=== PATIENT | male | born 1965 | race Two or more races ===

== ENCOUNTER 2016-08-05 11:19 | Outpatient (CLI) | payer MEDICARE | END 2016-08-05 23:59 | disposition home or self-care (01) | LOC: WOU 11:19 | PROVIDERS: ATTEND Podiatrist Foot & Ankle Surgery | DX: D57.1 Sickle-cell disease without crisis (principal); L97.312 Non-pressure chronic ulcer of right ankle with fat layer exposed; L97.322 Non-pressure chronic ulcer of left ankle with fat layer exposed; L03.115 Cellulitis of right lower limb; L03.116 Cellulitis of left lower limb; R60.0 Localized edema; I82.511 Chronic embolism and thrombosis of right femoral vein | CPT/HCPCS: 11042; 11045; A6207; A6402 ==

== ENCOUNTER 2016-08-12 11:16 | Outpatient (CLI) | payer MEDICARE | END 2016-08-12 23:59 | disposition home or self-care (01) | LOC: WOU 11:16 | PROVIDERS: ATTEND Podiatrist Foot & Ankle Surgery | DX: D57.1 Sickle-cell disease without crisis (principal); L97.312 Non-pressure chronic ulcer of right ankle with fat layer exposed; L97.322 Non-pressure chronic ulcer of left ankle with fat layer exposed; I82.511 Chronic embolism and thrombosis of right femoral vein; Z90.81 Acquired absence of spleen; Z90.49 Acquired absence of other specified parts of digestive tract; Z82.3 Family history of stroke; Z80.9 Family history of malignant neoplasm, unspecified; Z82.49 Family history of ischemic heart disease and other diseases of the circulatory system; Z79.891 Long term (current) use of opiate analgesic | CPT/HCPCS: 11042; 11045; A6207; A6402 ==

== ENCOUNTER 2016-08-19 10:55 | Outpatient (CLI) | payer MEDICARE | END 2016-08-19 23:59 | disposition home or self-care (01) | LOC: WOU 10:55 | PROVIDERS: ATTEND Podiatrist Foot & Ankle Surgery | DX: D57.1 Sickle-cell disease without crisis (principal); L97.221 Non-pressure chronic ulcer of left calf limited to breakdown of skin; L97.211 Non-pressure chronic ulcer of right calf limited to breakdown of skin; M21.172 Varus deformity, not elsewhere classified, left ankle; M21.171 Varus deformity, not elsewhere classified, right ankle; Z74.09 Other reduced mobility; I82.511 Chronic embolism and thrombosis of right femoral vein; L08.89 Other specified local infections of the skin and subcutaneous tissue; B95.8 Unspecified staphylococcus as the cause of diseases classified elsewhere | CPT/HCPCS: 11042; 11045; A6207; A6402 ×2 ==

== ENCOUNTER 2016-08-24 11:15 | Outpatient (CLI) | payer MEDICARE | END 2016-08-24 23:59 | disposition home or self-care (01) | LOC: WOU 11:15 | PROVIDERS: ATTEND Podiatrist Foot & Ankle Surgery | DX: D57.1 Sickle-cell disease without crisis (principal); L97.221 Non-pressure chronic ulcer of left calf limited to breakdown of skin; L97.211 Non-pressure chronic ulcer of right calf limited to breakdown of skin; M21.172 Varus deformity, not elsewhere classified, left ankle; M21.171 Varus deformity, not elsewhere classified, right ankle; Z74.09 Other reduced mobility; I82.511 Chronic embolism and thrombosis of right femoral vein; G89.29 Other chronic pain | CPT/HCPCS: 11042; 11045; A6207; A6402 ==

== ENCOUNTER 2016-09-02 10:50 | Outpatient (CLI) | payer MEDICARE | END 2016-09-02 23:59 | disposition home or self-care (01) | LOC: WOU 10:50 | PROVIDERS: ATTEND Podiatrist Foot & Ankle Surgery | DX: D57.1 Sickle-cell disease without crisis (principal); L97.312 Non-pressure chronic ulcer of right ankle with fat layer exposed; L97.322 Non-pressure chronic ulcer of left ankle with fat layer exposed; I87.2 Venous insufficiency (chronic) (peripheral); G89.29 Other chronic pain; Z90.81 Acquired absence of spleen; I82.511 Chronic embolism and thrombosis of right femoral vein; M21.172 Varus deformity, not elsewhere classified, left ankle; M21.171 Varus deformity, not elsewhere classified, right ankle; Z79.891 Long term (current) use of opiate analgesic; L03.115 Cellulitis of right lower limb; L03.116 Cellulitis of left lower limb; B95.61 Methicillin susceptible Staphylococcus aureus infection as the cause of diseases classified elsewhere | CPT/HCPCS: 11042; 11045; A6207; A6402 ==

== ENCOUNTER 2016-09-16 11:02 | Outpatient (CLI) | payer MEDICARE | END 2016-09-16 23:59 | disposition home or self-care (01) | LOC: WOU 11:02 | PROVIDERS: ATTEND Podiatrist Foot & Ankle Surgery | DX: D57.1 Sickle-cell disease without crisis (principal); L97.321 Non-pressure chronic ulcer of left ankle limited to breakdown of skin; L97.311 Non-pressure chronic ulcer of right ankle limited to breakdown of skin; M21.172 Varus deformity, not elsewhere classified, left ankle; M21.171 Varus deformity, not elsewhere classified, right ankle; G89.29 Other chronic pain; I82.511 Chronic embolism and thrombosis of right femoral vein; B95.61 Methicillin susceptible Staphylococcus aureus infection as the cause of diseases classified elsewhere | CPT/HCPCS: 11042; A6207; A6402 ==

== ENCOUNTER 2016-09-23 11:15 | Outpatient (CLI) | payer MEDICARE | END 2016-09-23 23:59 | disposition home or self-care (01) | LOC: WOU 11:15 | PROVIDERS: ATTEND Podiatrist Foot & Ankle Surgery | DX: D57.1 Sickle-cell disease without crisis (principal); L97.312 Non-pressure chronic ulcer of right ankle with fat layer exposed; L97.322 Non-pressure chronic ulcer of left ankle with fat layer exposed; M21.542 Acquired clubfoot, left foot; M21.541 Acquired clubfoot, right foot; I82.511 Chronic embolism and thrombosis of right femoral vein; L03.116 Cellulitis of left lower limb; L03.115 Cellulitis of right lower limb; B95.61 Methicillin susceptible Staphylococcus aureus infection as the cause of diseases classified elsewhere | CPT/HCPCS: 11042; 29582; A6207; A6402 ==

== ENCOUNTER 2016-09-30 10:45 | Outpatient (CLI) | payer MEDICARE | END 2016-09-30 23:59 | disposition home or self-care (01) | LOC: WOU 10:45 | PROVIDERS: ATTEND Podiatrist Foot & Ankle Surgery | DX: D57.1 Sickle-cell disease without crisis (principal); I96 Gangrene, not elsewhere classified; L97.312 Non-pressure chronic ulcer of right ankle with fat layer exposed; M21.542 Acquired clubfoot, left foot; M21.541 Acquired clubfoot, right foot; I82.511 Chronic embolism and thrombosis of right femoral vein; G89.29 Other chronic pain | CPT/HCPCS: 11042; 29582; A6207; A6402 ==

== ENCOUNTER 2016-10-07 11:03 | Outpatient (CLI) | payer MEDICARE | END 2016-10-07 23:59 | disposition home or self-care (01) | LOC: WOU 11:03 | PROVIDERS: ATTEND Podiatrist Foot & Ankle Surgery | DX: D57.1 Sickle-cell disease without crisis (principal); I82.511 Chronic embolism and thrombosis of right femoral vein; G89.29 Other chronic pain; M21.542 Acquired clubfoot, left foot; M21.541 Acquired clubfoot, right foot; Z87.891 Personal history of nicotine dependence; L97.312 Non-pressure chronic ulcer of right ankle with fat layer exposed | CPT/HCPCS: 11042; 29582; A6207 ×2; A6402 ==

== ENCOUNTER 2016-10-14 10:59 | Outpatient (CLI) | payer MEDICARE | END 2016-10-14 23:59 | disposition home or self-care (01) | LOC: WOU 10:59 | PROVIDERS: ATTEND Podiatrist Foot & Ankle Surgery | DX: D57.80 Other sickle-cell disorders without crisis (principal); L97.311 Non-pressure chronic ulcer of right ankle limited to breakdown of skin; I82.511 Chronic embolism and thrombosis of right femoral vein; G89.29 Other chronic pain; M21.172 Varus deformity, not elsewhere classified, left ankle; M21.171 Varus deformity, not elsewhere classified, right ankle; R60.0 Localized edema | CPT/HCPCS: 11042; 29582; A6207; A6402 ==

== ENCOUNTER 2016-10-26 09:48 | Outpatient (CLI) | payer MEDICARE | END 2016-10-26 23:59 | disposition home or self-care (01) | LOC: WOU 09:48 | PROVIDERS: ATTEND Podiatrist Foot & Ankle Surgery | DX: D57.80 Other sickle-cell disorders without crisis (principal); L97.311 Non-pressure chronic ulcer of right ankle limited to breakdown of skin; G89.29 Other chronic pain; M21.172 Varus deformity, not elsewhere classified, left ankle; M21.171 Varus deformity, not elsewhere classified, right ankle; R60.0 Localized edema | CPT/HCPCS: 11042; A6402; A6207 ==

== ENCOUNTER 2016-10-28 10:28 | Outpatient (CLI) | payer MEDICARE | END 2016-10-28 23:59 | disposition home or self-care (01) | LOC: WOU 10:28 | PROVIDERS: ATTEND Podiatrist Foot & Ankle Surgery | DX: D57.80 Other sickle-cell disorders without crisis (principal); L97.311 Non-pressure chronic ulcer of right ankle limited to breakdown of skin; G89.29 Other chronic pain; M21.172 Varus deformity, not elsewhere classified, left ankle; M21.171 Varus deformity, not elsewhere classified, right ankle; R60.0 Localized edema | CPT/HCPCS: 11042; A6207; A6402 ==

== ENCOUNTER 2016-11-11 10:13 | Outpatient (CLI) | payer MEDICARE | END 2016-11-11 23:59 | disposition home or self-care (01) | LOC: WOU 10:13 | PROVIDERS: ATTEND Podiatrist Foot & Ankle Surgery | DX: L97.311 Non-pressure chronic ulcer of right ankle limited to breakdown of skin (principal); D57.80 Other sickle-cell disorders without crisis; G89.29 Other chronic pain; M21.172 Varus deformity, not elsewhere classified, left ankle; M21.171 Varus deformity, not elsewhere classified, right ankle; R60.0 Localized edema; R26.9 Unspecified abnormalities of gait and mobility; I87.2 Venous insufficiency (chronic) (peripheral); I82.512 Chronic embolism and thrombosis of left femoral vein; Z86.14 Personal history of Methicillin resistant Staphylococcus aureus infection | CPT/HCPCS: 11042; A6207; A6402 ==

== ENCOUNTER 2016-11-25 10:08 | Outpatient (CLI) | payer MEDICARE | END 2016-11-25 23:59 | disposition home or self-care (01) | LOC: WOU 10:08 | PROVIDERS: ATTEND Podiatrist Foot & Ankle Surgery | DX: D57.1 Sickle-cell disease without crisis (principal); L97.312 Non-pressure chronic ulcer of right ankle with fat layer exposed; B35.1 Tinea unguium; M21.172 Varus deformity, not elsewhere classified, left ankle; M21.171 Varus deformity, not elsewhere classified, right ankle; G89.29 Other chronic pain; Z86.14 Personal history of Methicillin resistant Staphylococcus aureus infection; I82.511 Chronic embolism and thrombosis of right femoral vein; Z90.81 Acquired absence of spleen | CPT/HCPCS: 11042; A6207; A6402 ==

== ENCOUNTER 2016-12-02 09:50 | Outpatient (CLI) | payer MEDICARE | END 2016-12-02 23:59 | disposition home or self-care (01) | LOC: WOU 09:50 | PROVIDERS: ATTEND Podiatrist Foot & Ankle Surgery | DX: D57.1 Sickle-cell disease without crisis (principal); L97.312 Non-pressure chronic ulcer of right ankle with fat layer exposed; I82.511 Chronic embolism and thrombosis of right femoral vein; M21.542 Acquired clubfoot, left foot; M21.541 Acquired clubfoot, right foot; Z82.3 Family history of stroke; Z82.49 Family history of ischemic heart disease and other diseases of the circulatory system | CPT/HCPCS: A6207; A6402 ==

== ENCOUNTER 2016-12-09 10:05 | Outpatient (CLI) | payer MEDICARE | END 2016-12-09 23:59 | disposition home or self-care (01) | LOC: WOU 10:05 | PROVIDERS: ATTEND Podiatrist Foot & Ankle Surgery | DX: D57.1 Sickle-cell disease without crisis (principal); L97.319 Non-pressure chronic ulcer of right ankle with unspecified severity; L84 Corns and callosities; M21.172 Varus deformity, not elsewhere classified, left ankle; M21.171 Varus deformity, not elsewhere classified, right ankle; I82.511 Chronic embolism and thrombosis of right femoral vein; R26.9 Unspecified abnormalities of gait and mobility; Z90.49 Acquired absence of other specified parts of digestive tract; Z90.81 Acquired absence of spleen | CPT/HCPCS: 29582; A6207; A6402 ==

== ENCOUNTER 2016-12-14 10:11 | Outpatient (CLI) | payer MEDICARE | END 2016-12-14 23:59 | disposition home or self-care (01) | LOC: WOU 10:11 | PROVIDERS: ATTEND Podiatrist Foot & Ankle Surgery | DX: D57.1 Sickle-cell disease without crisis (principal); L97.319 Non-pressure chronic ulcer of right ankle with unspecified severity; L84 Corns and callosities; M21.172 Varus deformity, not elsewhere classified, left ankle; M21.171 Varus deformity, not elsewhere classified, right ankle; I82.511 Chronic embolism and thrombosis of right femoral vein; R26.9 Unspecified abnormalities of gait and mobility; M24.673 Ankylosis, unspecified ankle | CPT/HCPCS: 29582; A6207; A6402 ==

== ENCOUNTER 2016-12-23 08:00 | Outpatient (CLI) | payer MEDICARE | END 2016-12-23 23:59 | disposition home or self-care (01) | LOC: WOU 08:00 | PROVIDERS: ATTEND Podiatrist Foot & Ankle Surgery | DX: D57.1 Sickle-cell disease without crisis (principal); L97.311 Non-pressure chronic ulcer of right ankle limited to breakdown of skin; I82.511 Chronic embolism and thrombosis of right femoral vein; G89.29 Other chronic pain; M21.172 Varus deformity, not elsewhere classified, left ankle; M21.171 Varus deformity, not elsewhere classified, right ankle; M24.672 Ankylosis, left ankle; M24.671 Ankylosis, right ankle | CPT/HCPCS: 15110; A6207; A6402 ==

== ENCOUNTER 2016-12-30 10:00 | Outpatient (CLI) | payer MEDICARE | END 2016-12-30 23:59 | disposition home or self-care (01) | LOC: WOU 10:00 | PROVIDERS: ATTEND Podiatrist Foot & Ankle Surgery | DX: D57.1 Sickle-cell disease without crisis (principal); L97.312 Non-pressure chronic ulcer of right ankle with fat layer exposed; M21.172 Varus deformity, not elsewhere classified, left ankle; M21.171 Varus deformity, not elsewhere classified, right ankle; R60.0 Localized edema | CPT/HCPCS: 29582; A6207; A6402 ==

== ENCOUNTER 2017-01-11 10:15 | Outpatient (CLI) | payer MEDICARE | END 2017-01-11 23:59 | disposition home or self-care (01) | LOC: WOU 10:15 | PROVIDERS: ATTEND Podiatrist Foot & Ankle Surgery | DX: D57.1 Sickle-cell disease without crisis (principal); L97.311 Non-pressure chronic ulcer of right ankle limited to breakdown of skin; R60.0 Localized edema; M21.172 Varus deformity, not elsewhere classified, left ankle; M21.171 Varus deformity, not elsewhere classified, right ankle; L90.9 Atrophic disorder of skin, unspecified; I82.511 Chronic embolism and thrombosis of right femoral vein | CPT/HCPCS: 17250; A6207; A6402 ==

== ENCOUNTER 2017-01-25 08:44 | Outpatient (CLI) | payer MEDICARE | END 2017-01-25 23:59 | disposition home or self-care (01) | LOC: WOU 08:44 | PROVIDERS: ATTEND Podiatrist Foot & Ankle Surgery | DX: D57.1 Sickle-cell disease without crisis (principal); L97.312 Non-pressure chronic ulcer of right ankle with fat layer exposed; M21.171 Varus deformity, not elsewhere classified, right ankle; I82.511 Chronic embolism and thrombosis of right femoral vein | CPT/HCPCS: 11042; A6207; A6402 ==

== ENCOUNTER 2017-02-10 09:10 | Outpatient (CLI) | payer MEDICARE | END 2017-02-10 23:59 | disposition home or self-care (01) | LOC: WOU 09:10 | PROVIDERS: ATTEND Podiatrist Foot & Ankle Surgery | DX: D57.1 Sickle-cell disease without crisis (principal); L97.322 Non-pressure chronic ulcer of left ankle with fat layer exposed; L97.312 Non-pressure chronic ulcer of right ankle with fat layer exposed; L84 Corns and callosities; M21.172 Varus deformity, not elsewhere classified, left ankle; M21.171 Varus deformity, not elsewhere classified, right ankle; I82.511 Chronic embolism and thrombosis of right femoral vein; R26.9 Unspecified abnormalities of gait and mobility; Z79.891 Long term (current) use of opiate analgesic; Z82.3 Family history of stroke; Z80.9 Family history of malignant neoplasm, unspecified; Z82.49 Family history of ischemic heart disease and other diseases of the circulatory system; Z90.81 Acquired absence of spleen; Z90.49 Acquired absence of other specified parts of digestive tract | CPT/HCPCS: 11042; A6197; A6207; A6402 ×2 ==

== ENCOUNTER 2017-02-24 09:20 | Outpatient (CLI) | payer MEDICARE, MEDICAID | END 2017-02-24 23:59 | disposition home or self-care (01) | LOC: WOU 09:20 | PROVIDERS: ATTEND Podiatrist Foot & Ankle Surgery | DX: D57.1 Sickle-cell disease without crisis (principal); L97.311 Non-pressure chronic ulcer of right ankle limited to breakdown of skin; S91.301D Unspecified open wound, right foot, subsequent encounter; X58.XXXD Exposure to other specified factors, subsequent encounter; S91.302D Unspecified open wound, left foot, subsequent encounter; R60.0 Localized edema; M21.172 Varus deformity, not elsewhere classified, left ankle; M21.171 Varus deformity, not elsewhere classified, right ankle; I82.511 Chronic embolism and thrombosis of right femoral vein; R26.9 Unspecified abnormalities of gait and mobility | CPT/HCPCS: 11042; A6207; A6402 ==

== ENCOUNTER 2017-03-08 09:15 | Outpatient (CLI) | payer MEDICARE, MEDICAID | END 2017-03-08 23:59 | disposition home or self-care (01) | LOC: WOU 09:15 | PROVIDERS: ATTEND Podiatrist Foot & Ankle Surgery | DX: D57.1 Sickle-cell disease without crisis (principal); L97.311 Non-pressure chronic ulcer of right ankle limited to breakdown of skin; M21.172 Varus deformity, not elsewhere classified, left ankle; M21.171 Varus deformity, not elsewhere classified, right ankle; I82.511 Chronic embolism and thrombosis of right femoral vein; R26.9 Unspecified abnormalities of gait and mobility; R60.0 Localized edema | CPT/HCPCS: 15110; A6207; A6402 ==

== ENCOUNTER 2017-03-17 09:15 | Outpatient (CLI) | payer MEDICARE, MEDICAID | END 2017-03-17 23:59 | disposition home or self-care (01) | LOC: WOU 09:15 | PROVIDERS: ATTEND Podiatrist Foot & Ankle Surgery | DX: D57.1 Sickle-cell disease without crisis (principal); L97.311 Non-pressure chronic ulcer of right ankle limited to breakdown of skin; M21.172 Varus deformity, not elsewhere classified, left ankle; M21.171 Varus deformity, not elsewhere classified, right ankle; I82.511 Chronic embolism and thrombosis of right femoral vein; R26.9 Unspecified abnormalities of gait and mobility; R60.0 Localized edema; L03.115 Cellulitis of right lower limb; L03.116 Cellulitis of left lower limb | CPT/HCPCS: 29582; A6207; A6402 ==

== ENCOUNTER 2017-03-24 09:21 | Outpatient (CLI) | payer MEDICARE, MEDICAID | END 2017-03-24 23:59 | disposition home or self-care (01) | LOC: WOU 09:21 | PROVIDERS: ATTEND Podiatrist Foot & Ankle Surgery | DX: D57.1 Sickle-cell disease without crisis (principal); L97.312 Non-pressure chronic ulcer of right ankle with fat layer exposed; M21.172 Varus deformity, not elsewhere classified, left ankle; M21.171 Varus deformity, not elsewhere classified, right ankle; I82.511 Chronic embolism and thrombosis of right femoral vein; R26.9 Unspecified abnormalities of gait and mobility; R60.0 Localized edema; L84 Corns and callosities | CPT/HCPCS: 29582; A6207; A6402 ==

== ENCOUNTER 2017-03-31 09:15 | Outpatient (CLI) | payer MEDICARE, MEDICAID | END 2017-03-31 23:59 | disposition home or self-care (01) | LOC: WOU 09:15 | PROVIDERS: ATTEND Podiatrist Foot & Ankle Surgery | DX: D57.1 Sickle-cell disease without crisis (principal); L97.311 Non-pressure chronic ulcer of right ankle limited to breakdown of skin; M21.172 Varus deformity, not elsewhere classified, left ankle; M21.171 Varus deformity, not elsewhere classified, right ankle; I82.511 Chronic embolism and thrombosis of right femoral vein; R26.9 Unspecified abnormalities of gait and mobility; R60.0 Localized edema | CPT/HCPCS: 11042; A6207; A6402 ==

== ENCOUNTER 2017-04-12 09:53 | Outpatient (CLI) | payer MEDICARE, MEDICAID | END 2017-04-12 23:59 | disposition home or self-care (01) | DX: D57.1 Sickle-cell disease without crisis (principal); L97.311 Non-pressure chronic ulcer of right ankle limited to breakdown of skin; M21.172 Varus deformity, not elsewhere classified, left ankle; M21.171 Varus deformity, not elsewhere classified, right ankle; I82.511 Chronic embolism and thrombosis of right femoral vein; R26.9 Unspecified abnormalities of gait and mobility; R60.0 Localized edema | CPT/HCPCS: 11042; A6207; A6402 ==

== ENCOUNTER 2017-04-21 09:03 | Outpatient (CLI) | payer MEDICARE, MEDICAID | END 2017-04-21 23:59 | disposition home or self-care (01) | LOC: WOU 09:03 | PROVIDERS: ATTEND Podiatrist Foot & Ankle Surgery | DX: D57.1 Sickle-cell disease without crisis (principal); L97.311 Non-pressure chronic ulcer of right ankle limited to breakdown of skin; M21.172 Varus deformity, not elsewhere classified, left ankle; M21.171 Varus deformity, not elsewhere classified, right ankle; M20.40 Other hammer toe(s) (acquired), unspecified foot; M24.672 Ankylosis, left ankle; M24.671 Ankylosis, right ankle | CPT/HCPCS: 11042; A6207; A6402 ==

== ENCOUNTER 2017-05-02 10:29 | Outpatient (CLI) | payer MEDICARE, MEDICAID | END 2017-05-02 23:59 | disposition home or self-care (01) | LOC: WOU 10:29 | PROVIDERS: ATTEND Podiatrist Foot & Ankle Surgery | DX: D57.1 Sickle-cell disease without crisis (principal); L97.311 Non-pressure chronic ulcer of right ankle limited to breakdown of skin; M21.172 Varus deformity, not elsewhere classified, left ankle; M21.171 Varus deformity, not elsewhere classified, right ankle; M20.40 Other hammer toe(s) (acquired), unspecified foot; M24.672 Ankylosis, left ankle; M24.671 Ankylosis, right ankle; L84 Corns and callosities; G89.29 Other chronic pain | CPT/HCPCS: 11042; A6207; A6402 ==

== ENCOUNTER 2017-05-10 09:32 | Outpatient (CLI) | payer MEDICARE, MEDICAID | END 2017-05-10 23:59 | disposition home or self-care (01) | LOC: WOU 09:32 | PROVIDERS: ATTEND Podiatrist Foot & Ankle Surgery | DX: D57.1 Sickle-cell disease without crisis (principal); L97.311 Non-pressure chronic ulcer of right ankle limited to breakdown of skin; M21.172 Varus deformity, not elsewhere classified, left ankle; M21.171 Varus deformity, not elsewhere classified, right ankle; M20.40 Other hammer toe(s) (acquired), unspecified foot; M24.672 Ankylosis, left ankle; M24.671 Ankylosis, right ankle; G89.29 Other chronic pain | CPT/HCPCS: 11042; A6207; A6402 ==

== ENCOUNTER 2017-05-17 09:15 | Outpatient (CLI) | payer MEDICARE, MEDICAID | END 2017-05-17 23:59 | disposition home or self-care (01) | LOC: WOU 09:15 | PROVIDERS: ATTEND Podiatrist Foot & Ankle Surgery | DX: D57.1 Sickle-cell disease without crisis (principal); L97.311 Non-pressure chronic ulcer of right ankle limited to breakdown of skin; M21.172 Varus deformity, not elsewhere classified, left ankle; M21.171 Varus deformity, not elsewhere classified, right ankle; G89.29 Other chronic pain; Z74.09 Other reduced mobility | CPT/HCPCS: 11042; A6207; A6402 ==

== ENCOUNTER 2017-05-24 08:45 | Outpatient (CLI) | payer MEDICARE, MEDICAID | END 2017-05-24 23:59 | disposition home or self-care (01) | LOC: WOU 08:45 | PROVIDERS: ATTEND Podiatrist Foot & Ankle Surgery | DX: L97.311 Non-pressure chronic ulcer of right ankle limited to breakdown of skin (principal); D57.1 Sickle-cell disease without crisis; M21.172 Varus deformity, not elsewhere classified, left ankle; M21.171 Varus deformity, not elsewhere classified, right ankle; G89.29 Other chronic pain; Z74.09 Other reduced mobility | CPT/HCPCS: 11042; A6207; A6402 ==

== ENCOUNTER 2017-05-31 08:40 | Outpatient (CLI) | payer MEDICARE, MEDICAID | END 2017-05-31 23:59 | disposition home or self-care (01) | LOC: WOU 08:40 | PROVIDERS: ATTEND Podiatrist Foot & Ankle Surgery | DX: D57.1 Sickle-cell disease without crisis (principal); L97.312 Non-pressure chronic ulcer of right ankle with fat layer exposed; M24.672 Ankylosis, left ankle; M24.671 Ankylosis, right ankle; R60.0 Localized edema; L03.115 Cellulitis of right lower limb; L03.116 Cellulitis of left lower limb | CPT/HCPCS: 11042; A6207; A6402 ==

== ENCOUNTER 2017-06-07 09:13 | Outpatient (CLI) | payer MEDICARE, MEDICAID | END 2017-06-07 23:59 | disposition home or self-care (01) | LOC: WOU 09:13 | PROVIDERS: ATTEND Podiatrist Foot & Ankle Surgery | DX: D57.1 Sickle-cell disease without crisis (principal); L97.312 Non-pressure chronic ulcer of right ankle with fat layer exposed; M21.171 Varus deformity, not elsewhere classified, right ankle; M24.672 Ankylosis, left ankle; M24.671 Ankylosis, right ankle; Z74.09 Other reduced mobility; Z79.891 Long term (current) use of opiate analgesic | CPT/HCPCS: 11042; A6207; A6402 ==

== ENCOUNTER 2017-06-14 08:07 | Outpatient (CLI) | payer MEDICARE, MEDICAID | END 2017-06-14 23:59 | disposition home or self-care (01) | LOC: WOU 08:07 | PROVIDERS: ATTEND Podiatrist Foot & Ankle Surgery | DX: L97.311 Non-pressure chronic ulcer of right ankle limited to breakdown of skin (principal); D57.1 Sickle-cell disease without crisis; L84 Corns and callosities; M21.172 Varus deformity, not elsewhere classified, left ankle; M21.171 Varus deformity, not elsewhere classified, right ankle; G89.29 Other chronic pain | CPT/HCPCS: 11042; A6207; A6402 ==

== ENCOUNTER 2017-06-28 09:05 | Outpatient (CLI) | payer MEDICARE, MEDICAID | END 2017-06-28 23:59 | disposition home or self-care (01) | LOC: WOU 09:05 | PROVIDERS: ATTEND Podiatrist Foot & Ankle Surgery | DX: R60.0 Localized edema (principal); D57.1 Sickle-cell disease without crisis; M21.172 Varus deformity, not elsewhere classified, left ankle; M21.171 Varus deformity, not elsewhere classified, right ankle; L84 Corns and callosities; M24.672 Ankylosis, left ankle; M24.671 Ankylosis, right ankle | CPT/HCPCS: A6207; A6402 ==

== ENCOUNTER 2017-07-12 09:10 | Outpatient (CLI) | payer MEDICARE, MEDICAID ==
[~2017-07-12 09:10] MED LIST: LORAZEPAM INJ 2 MG/ML VIAL ONE
== END 2017-07-12 23:59 | disposition home or self-care (01) ==
LOC: WOU 09:10
PROVIDERS: ATTEND Podiatrist Foot & Ankle Surgery
DX: L97.311 Non-pressure chronic ulcer of right ankle limited to breakdown of skin (principal); I87.311 Chronic venous hypertension (idiopathic) with ulcer of right lower extremity; B35.1 Tinea unguium; D57.1 Sickle-cell disease without crisis; M21.172 Varus deformity, not elsewhere classified, left ankle; M21.171 Varus deformity, not elsewhere classified, right ankle
CPT/HCPCS: 17250; A6207; A6402; J2060

== ENCOUNTER 2017-07-19 08:30 | Outpatient (CLI) | payer MEDICARE, MEDICAID | END 2017-07-19 23:59 | disposition home or self-care (01) | LOC: WOU 08:30 | PROVIDERS: ATTEND Podiatrist Foot & Ankle Surgery | DX: L97.312 Non-pressure chronic ulcer of right ankle with fat layer exposed (principal); I87.2 Venous insufficiency (chronic) (peripheral); D57.1 Sickle-cell disease without crisis; R60.0 Localized edema; M21.172 Varus deformity, not elsewhere classified, left ankle; M21.171 Varus deformity, not elsewhere classified, right ankle | CPT/HCPCS: 11042; A6207; A6402 ==

== ENCOUNTER 2017-07-28 08:46 | Outpatient (CLI) | payer MEDICARE, MEDICAID | END 2017-07-29 23:59 | disposition home or self-care (01) | LOC: WOU 08:46 | PROVIDERS: ATTEND Podiatrist Foot & Ankle Surgery | DX: M21.172 Varus deformity, not elsewhere classified, left ankle (principal); M21.171 Varus deformity, not elsewhere classified, right ankle; M21.542 Acquired clubfoot, left foot; M21.541 Acquired clubfoot, right foot; L84 Corns and callosities; R60.0 Localized edema; I87.8 Other specified disorders of veins; R26.9 Unspecified abnormalities of gait and mobility; G89.29 Other chronic pain; D57.1 Sickle-cell disease without crisis | CPT/HCPCS: 29582; A6207; A6402 ==

== ENCOUNTER 2017-08-11 08:50 | Outpatient (CLI) | payer MEDICARE, MEDICAID | END 2017-08-11 23:59 | disposition home or self-care (01) | LOC: WOU 08:50 | PROVIDERS: ATTEND Podiatrist Foot & Ankle Surgery | DX: L89.892 Pressure ulcer of other site, stage 2 (principal); M21.172 Varus deformity, not elsewhere classified, left ankle; M21.171 Varus deformity, not elsewhere classified, right ankle; L84 Corns and callosities; D57.1 Sickle-cell disease without crisis; I87.301 Chronic venous hypertension (idiopathic) without complications of right lower extremity | CPT/HCPCS: 11042; 29580; A6207; A6402 ==

== ENCOUNTER 2017-08-18 08:57 | Outpatient (CLI) | payer MEDICARE, OTHER | END 2017-08-18 23:59 | disposition home or self-care (01) | LOC: WOU 08:57 | PROVIDERS: ATTEND Podiatrist Foot & Ankle Surgery | DX: L89.892 Pressure ulcer of other site, stage 2 (principal); L84 Corns and callosities; D57.1 Sickle-cell disease without crisis; M21.542 Acquired clubfoot, left foot; M21.541 Acquired clubfoot, right foot; M24.672 Ankylosis, left ankle; M24.671 Ankylosis, right ankle | CPT/HCPCS: 11042; 29581; A6207; A6402 ==

== ENCOUNTER 2017-08-25 09:50 | Outpatient (CLI) | payer MEDICARE, MEDICAID | END 2017-08-25 23:59 | disposition home or self-care (01) | LOC: CT 09:50 | PROVIDERS: ATTEND Podiatrist Foot & Ankle Surgery | DX: Z01.818 Encounter for other preprocedural examination (principal); M21.961 Unspecified acquired deformity of right lower leg; M17.0 Bilateral primary osteoarthritis of knee; M85.88 Other specified disorders of bone density and structure, other site; S82.832A Other fracture of upper and lower end of left fibula, initial encounter for closed fracture; M17.12 Unilateral primary osteoarthritis, left knee; M21.962 Unspecified acquired deformity of left lower leg; X58.XXXA Exposure to other specified factors, initial encounter; Z98.890 Other specified postprocedural states; Y93.89 Activity, other specified; Y92.89 Other specified places as the place of occurrence of the external cause; Y99.8 Other external cause status | CPT/HCPCS: 73590-TC; 73610-TC; 73630-TC; 73650-TC; 73700-TC ==

== ENCOUNTER 2017-09-01 09:04 | Outpatient (CLI) | payer MEDICARE, OTHER | END 2017-09-01 23:59 | disposition home or self-care (01) | LOC: WOU 09:04 | PROVIDERS: ATTEND Podiatrist Foot & Ankle Surgery | DX: M79.81 Nontraumatic hematoma of soft tissue (principal); D57.1 Sickle-cell disease without crisis; R60.0 Localized edema; M21.542 Acquired clubfoot, left foot; M21.541 Acquired clubfoot, right foot | CPT/HCPCS: 10140; 29581; A6207; A6402 ==

== ENCOUNTER 2017-09-08 08:58 | Outpatient (CLI) | payer MEDICARE, OTHER | END 2017-09-08 23:59 | disposition home or self-care (01) | LOC: WOU 08:58 | PROVIDERS: ATTEND Podiatrist Foot & Ankle Surgery | DX: M21.172 Varus deformity, not elsewhere classified, left ankle (principal); M21.171 Varus deformity, not elsewhere classified, right ankle; M79.672 Pain in left foot; R60.0 Localized edema; D57.1 Sickle-cell disease without crisis | CPT/HCPCS: 29581-RT; A6207; A6402 ==

== ENCOUNTER 2017-09-29 09:20 | Outpatient (CLI) | payer MEDICARE, OTHER | END 2017-09-29 23:59 | disposition home or self-care (01) | LOC: WOU 09:20 | PROVIDERS: ATTEND Podiatrist Foot & Ankle Surgery | DX: M21.172 Varus deformity, not elsewhere classified, left ankle (principal); M21.171 Varus deformity, not elsewhere classified, right ankle; L84 Corns and callosities; D57.1 Sickle-cell disease without crisis; R60.0 Localized edema | CPT/HCPCS: 29581; A6207; A6402 ==

== ENCOUNTER 2017-10-11 09:10 | Outpatient (CLI) | payer MEDICARE, OTHER | END 2017-10-11 23:59 | disposition home or self-care (01) | LOC: WOU 09:10 | PROVIDERS: ATTEND Podiatrist Foot & Ankle Surgery | DX: M21.172 Varus deformity, not elsewhere classified, left ankle (principal); M21.171 Varus deformity, not elsewhere classified, right ankle; D57.1 Sickle-cell disease without crisis; L84 Corns and callosities; L90.9 Atrophic disorder of skin, unspecified; R60.0 Localized edema | CPT/HCPCS: 29580; A6207; A6402 ==

== ENCOUNTER 2017-10-11 12:12 | Outpatient (CLI) | payer MEDICARE, MEDICAID ==
[2017-10-11 13:29] LABS: MEAN CORPUSCULAR HEMOGLOBIN 21 PG (26.0-33.0); MEAN CORPUSCULAR HGB CONC 31 g/dl (31.0-36.0); MEAN CORPUSCULAR VOLUME 66 fL (80-96); PLATELET COUNT (AUTO) 384 /CMM (150-450); RED BLOOD CELL COUNT(AUTO) 3.03 MIL/uL (4.5-6.0); WHITE BLOOD COUNT (AUTO) 9.2 K/uL (4.3-11.0)
[2017-10-11 13:44] LABS: ALBUMIN 3.4 g/dL (3.4-5.0); CALCIUM, SERUM 8.4 mg/dL (8.5-10.1); CREATININE 1.7 mg/dL (0.6-1.3); POTASSIUM 3.9 mmol/L (3.5-5.1); TOTAL PROTEIN, SERUM 7.7 g/dL (6.4-8.2)
[2017-10-11 14:52] LABS: HEMATOCRIT 20 % (39-51); HEMOGLOBIN 6.3 g/dL (13.5-17.5)
[2017-10-11 15:00] LABS: EOSINOPHILS % (MANUAL) 2 % (0-4); LYMPHOCYTES % (MANUAL) 18 % (16-48); MONOCYTES % (MANUAL) 10 % (0-11.0); NEUTROPHILS % (MANUAL) 70 (42-76)
[2017-10-11 15:16] LABS: RETICULOCYTE COUNT 7.1 % (0.6-2.5)
== END 2017-10-11 23:59 | disposition home or self-care (01) ==
LOC: LAB 12:12
PROVIDERS: ATTEND Internal Medicine Hematology & Oncology
DX: D57.1 Sickle-cell disease without crisis (principal)
CPT/HCPCS: 80053-TC; 82746; 83021; 83540-TC; 83615-TC; 85025-TC; 85045-TC; 85660

== ENCOUNTER 2017-10-20 10:13 | Outpatient (CLI) | payer MEDICARE, MEDICAID | END 2017-10-20 23:59 | disposition home or self-care (01) | LOC: WOU 10:13 | PROVIDERS: ATTEND Podiatrist Foot & Ankle Surgery | DX: M21.172 Varus deformity, not elsewhere classified, left ankle (principal); M21.171 Varus deformity, not elsewhere classified, right ankle; R60.0 Localized edema; L90.9 Atrophic disorder of skin, unspecified; D57.1 Sickle-cell disease without crisis; M25.572 Pain in left ankle and joints of left foot; M25.571 Pain in right ankle and joints of right foot; M79.672 Pain in left foot; M79.671 Pain in right foot | CPT/HCPCS: 29581; A6207; A6402; 29580 ==

== ENCOUNTER 2017-11-03 09:00 | Outpatient (CLI) | payer MEDICARE, MEDICAID ==
[~2017-11-03 09:00] MED LIST changes: +FLUORESCEIN SODIUM OPHTH 1 EA STRIP ONE; -LORAZEPAM INJ 2 MG/ML VIAL ONE
== END 2017-11-03 23:59 | disposition home or self-care (01) ==
LOC: WOU 09:00
PROVIDERS: ATTEND Podiatrist Foot & Ankle Surgery
DX: M21.172 Varus deformity, not elsewhere classified, left ankle (principal); M21.171 Varus deformity, not elsewhere classified, right ankle; D57.1 Sickle-cell disease without crisis; M79.672 Pain in left foot; M79.671 Pain in right foot
CPT/HCPCS: A6207; G0463

== ENCOUNTER 2017-11-03 10:06 | Outpatient (CLI) | payer MEDICARE, MEDICAID ==
[2017-11-03 18:24] LABS: IRON, SERUM 27 ug/dl (50-175); TOTAL IRON BINDING CAPACITY 337 ug/dl (250-450)
[2017-11-03 18:32] LABS: FERRITIN 28 ng/mL (8-388)
== END 2017-11-03 23:59 | disposition home or self-care (01) ==
LOC: US 10:06
PROVIDERS: ATTEND Internal Medicine Hematology & Oncology
DX: N28.9 Disorder of kidney and ureter, unspecified (principal)
CPT/HCPCS: 36415; 76770-TC; 82728-TC; 83540-TC

== ENCOUNTER 2017-12-01 08:20 | Outpatient (CLI) | payer MEDICARE, OTHER | END 2017-12-01 23:59 | disposition home or self-care (01) | LOC: WOU 08:20 | PROVIDERS: ATTEND Podiatrist Foot & Ankle Surgery | DX: I87.2 Venous insufficiency (chronic) (peripheral) (principal); R60.0 Localized edema; M21.172 Varus deformity, not elsewhere classified, left ankle; M21.171 Varus deformity, not elsewhere classified, right ankle; D57.1 Sickle-cell disease without crisis; L84 Corns and callosities; L60.3 Nail dystrophy; Z98.1 Arthrodesis status | CPT/HCPCS: 29581; A6207; A6402; 29580 ==

== ENCOUNTER 2018-02-13 10:47 | Outpatient (CLI) | payer MEDICARE, MEDICAID | END 2018-02-13 23:59 | disposition home or self-care (01) | LOC: WOU 10:47 | PROVIDERS: ATTEND Podiatrist Foot & Ankle Surgery | DX: L97.322 Non-pressure chronic ulcer of left ankle with fat layer exposed (principal); I87.2 Venous insufficiency (chronic) (peripheral); M21.542 Acquired clubfoot, left foot; M21.541 Acquired clubfoot, right foot; R60.9 Edema, unspecified; L84 Corns and callosities; D57.1 Sickle-cell disease without crisis | CPT/HCPCS: 11042; 29581; A6207; A6209; A6402 ==

== ENCOUNTER 2018-04-27 08:32 | Outpatient (CLI) | payer MEDICARE, MEDICAID | END 2018-04-27 23:59 | disposition home or self-care (01) | LOC: WOU 08:32 | PROVIDERS: ATTEND Podiatrist Foot & Ankle Surgery | DX: M21.541 Acquired clubfoot, right foot (principal); R60.0 Localized edema; D57.1 Sickle-cell disease without crisis; M21.542 Acquired clubfoot, left foot | CPT/HCPCS: 29581; A6207; A6402; Z7610; 29580 ==

== ENCOUNTER 2018-05-04 09:13 | Outpatient (CLI) | payer MEDICARE, MEDICAID | END 2018-05-04 23:59 | disposition home or self-care (01) | LOC: WOU 09:13 | PROVIDERS: ATTEND Podiatrist Foot & Ankle Surgery | DX: R60.0 Localized edema (principal); M21.542 Acquired clubfoot, left foot; M21.541 Acquired clubfoot, right foot; D57.1 Sickle-cell disease without crisis; Z98.1 Arthrodesis status; G89.29 Other chronic pain | CPT/HCPCS: 29581; A6207; Z7610; 29580 ==

== ENCOUNTER 2018-08-07 11:22 | Outpatient (CLI) | payer MEDICARE, MEDICAID | END 2018-08-07 23:59 | disposition home or self-care (01) | LOC: WOU 11:22 | PROVIDERS: ATTEND Podiatrist Foot & Ankle Surgery | DX: Z47.89 Encounter for other orthopedic aftercare (principal); Z98.1 Arthrodesis status; Q66.89 Other specified congenital deformities of feet; M21.172 Varus deformity, not elsewhere classified, left ankle; L84 Corns and callosities; M79.672 Pain in left foot; D57.1 Sickle-cell disease without crisis | CPT/HCPCS: A6402; G0463; Z7610 ==

== ENCOUNTER 2018-08-17 09:08 | Outpatient (CLI) | payer MEDICARE, MEDICAID | END 2018-08-17 23:59 | disposition home or self-care (01) | LOC: CT 09:08 | PROVIDERS: ATTEND Podiatrist Foot & Ankle Surgery | DX: Z47.89 Encounter for other orthopedic aftercare (principal); M85.871 Other specified disorders of bone density and structure, right ankle and foot; Z86.2 Personal history of diseases of the blood and blood-forming organs and certain disorders involving the immune mechanism | CPT/HCPCS: 73700-TC ==

== ENCOUNTER 2018-08-17 09:40 | Outpatient (CLI) | payer MEDICARE, MEDICAID | END 2018-08-17 23:59 | disposition home or self-care (01) | LOC: WOU 09:40 | PROVIDERS: ATTEND Podiatrist Foot & Ankle Surgery | DX: Z47.89 Encounter for other orthopedic aftercare (principal); Z98.1 Arthrodesis status; L84 Corns and callosities; M21.542 Acquired clubfoot, left foot; D57.1 Sickle-cell disease without crisis; R60.0 Localized edema; Z74.09 Other reduced mobility; Z79.891 Long term (current) use of opiate analgesic; M79.672 Pain in left foot | CPT/HCPCS: A6402 ×2; G0463; Z7610 ==

== ENCOUNTER 2018-09-04 10:35 | Outpatient (CLI) | payer MEDICARE, MEDICAID | END 2018-09-04 23:59 | disposition home health service (06) | LOC: WOU 10:35 | PROVIDERS: ATTEND Podiatrist Foot & Ankle Surgery | DX: Z47.89 Encounter for other orthopedic aftercare (principal); Z98.1 Arthrodesis status; M21.542 Acquired clubfoot, left foot; L84 Corns and callosities; D57.1 Sickle-cell disease without crisis; Z96.89 Presence of other specified functional implants; Z97.8 Presence of other specified devices | CPT/HCPCS: A6402; G0463 ==

== ENCOUNTER 2018-09-18 10:40 | Outpatient (CLI) | payer MEDICARE, MEDICAID | END 2018-09-18 23:59 | disposition home health service (06) | LOC: WOU 10:40 | PROVIDERS: ATTEND Podiatrist Foot & Ankle Surgery | DX: Z47.89 Encounter for other orthopedic aftercare (principal); Z98.1 Arthrodesis status; M21.542 Acquired clubfoot, left foot; L84 Corns and callosities; R60.0 Localized edema; M79.672 Pain in left foot; D57.1 Sickle-cell disease without crisis; Z97.8 Presence of other specified devices | CPT/HCPCS: A6402; G0463 ==

== ENCOUNTER 2018-10-09 10:45 | Outpatient (CLI) | payer MEDICARE, MEDICAID | END 2018-10-09 23:59 | disposition home health service (06) | LOC: WOU 10:45 | PROVIDERS: ATTEND Podiatrist Foot & Ankle Surgery | DX: Z47.89 Encounter for other orthopedic aftercare (principal); Z98.1 Arthrodesis status; R60.0 Localized edema; M21.542 Acquired clubfoot, left foot; D57.1 Sickle-cell disease without crisis; M79.672 Pain in left foot; Z97.8 Presence of other specified devices; F11.90 Opioid use, unspecified, uncomplicated | CPT/HCPCS: A6402; G0463 ==

== ENCOUNTER 2018-10-11 10:19 | Outpatient (CLI) | payer MEDICARE, MEDICAID | END 2018-10-11 23:59 | disposition home or self-care (01) | LOC: CT 10:19 | PROVIDERS: ATTEND Podiatrist Foot & Ankle Surgery | DX: M85.871 Other specified disorders of bone density and structure, right ankle and foot (principal); M25.471 Effusion, right ankle; M77.31 Calcaneal spur, right foot; R60.0 Localized edema | CPT/HCPCS: 73700-TC ==

== ENCOUNTER 2018-10-23 10:50 | Outpatient (CLI) | payer MEDICARE, MEDICAID | END 2018-10-23 23:59 | disposition home health service (06) | LOC: WOU 10:50 | PROVIDERS: ATTEND Podiatrist Foot & Ankle Surgery | DX: Z47.89 Encounter for other orthopedic aftercare (principal); Z98.1 Arthrodesis status; R60.0 Localized edema; M21.542 Acquired clubfoot, left foot; M21.541 Acquired clubfoot, right foot; D57.1 Sickle-cell disease without crisis; F11.90 Opioid use, unspecified, uncomplicated | CPT/HCPCS: A6402 ×2; G0463 ==

== ENCOUNTER 2018-11-16 10:00 | Outpatient (CLI) | payer MEDICARE, MEDICAID | END 2018-11-16 23:59 | disposition home health service (06) | LOC: WOU 10:00 | PROVIDERS: ATTEND Podiatrist Foot & Ankle Surgery | DX: Z47.89 Encounter for other orthopedic aftercare (principal); Z98.1 Arthrodesis status; D57.1 Sickle-cell disease without crisis; R60.0 Localized edema; M21.542 Acquired clubfoot, left foot; F17.200 Nicotine dependence, unspecified, uncomplicated | CPT/HCPCS: A6402; G0463 ==

== ENCOUNTER 2018-11-22 10:01 | Outpatient (CLI) | payer MEDICARE, MEDICAID | END 2018-11-22 23:59 | disposition home or self-care (01) | LOC: CT 10:01 | PROVIDERS: ATTEND Podiatrist Foot & Ankle Surgery | DX: M85.871 Other specified disorders of bone density and structure, right ankle and foot (principal); M77.31 Calcaneal spur, right foot; R60.0 Localized edema; Z98.890 Other specified postprocedural states | CPT/HCPCS: 73590-TC; 73610-TC; 73630-TC; 73700-TC ==

== ENCOUNTER 2018-11-30 09:15 | Outpatient (CLI) | payer MEDICARE, MEDICAID | END 2018-11-30 23:59 | disposition home health service (06) | LOC: WOU 09:15 | PROVIDERS: ATTEND Podiatrist Foot & Ankle Surgery | DX: Z47.89 Encounter for other orthopedic aftercare (principal); Z98.1 Arthrodesis status; R60.0 Localized edema; D57.1 Sickle-cell disease without crisis; M21.542 Acquired clubfoot, left foot; M21.541 Acquired clubfoot, right foot | CPT/HCPCS: A6402; G0463 ==

== ENCOUNTER 2019-01-11 11:05 | Outpatient (CLI) | payer MEDICARE, MEDICAID | END 2019-01-11 23:59 | disposition home health service (06) | LOC: WOU 11:05 | PROVIDERS: ATTEND Podiatrist Foot & Ankle Surgery | DX: Z47.89 Encounter for other orthopedic aftercare (principal); Z98.1 Arthrodesis status; M21.542 Acquired clubfoot, left foot; M96.0 Pseudarthrosis after fusion or arthrodesis; D57.1 Sickle-cell disease without crisis; R60.0 Localized edema; T84.84XA Pain due to internal orthopedic prosthetic devices, implants and grafts, initial encounter | CPT/HCPCS: A6402; G0463 ==

== ENCOUNTER 2019-01-18 09:17 | Outpatient (CLI) | payer MEDICARE, MEDICAID | END 2019-01-18 23:59 | disposition home or self-care (01) | LOC: CT 09:17 | PROVIDERS: ATTEND Podiatrist Foot & Ankle Surgery | DX: Z47.89 Encounter for other orthopedic aftercare (principal); M85.871 Other specified disorders of bone density and structure, right ankle and foot | CPT/HCPCS: 73700-TC ==

== ENCOUNTER 2019-01-29 10:50 | Outpatient (CLI) | payer MEDICARE, MEDICAID | END 2019-01-29 23:59 | disposition home health service (06) | LOC: WOU 10:50 | PROVIDERS: ATTEND Podiatrist Foot & Ankle Surgery | DX: Z47.89 Encounter for other orthopedic aftercare (principal); Z98.1 Arthrodesis status; M21.542 Acquired clubfoot, left foot; D57.1 Sickle-cell disease without crisis; R60.0 Localized edema | CPT/HCPCS: A6402; G0463 ==

== ENCOUNTER 2019-01-30 10:03 | Outpatient (CLI) | payer MEDICARE, MEDICAID ==
[2019-01-30 11:41] LABS: BASOPHILS # (AUTO) 0.1 /CMM (0.0-0.2); BASOPHILS % (AUTO) 1.3 % (0.0-2.0); EOSINOPHILS % (AUTO) 2.4 % (0.0-6.0); LYMPHOCYTES # (AUTO) 1.7 /CMM (0.8-4.8); LYMPHOCYTES % (AUTO) 17.5 % (20.0-44.0); MEAN CORPUSCULAR HGB CONC 35 g/dl (31.0-36.0); MEAN CORPUSCULAR VOLUME 85 fL (80-96); MONOCYTES # (AUTO) 0.9 /CMM (0.1-1.30); MONOCYTES % (AUTO) 8.7 % (2.0-12.0); NEUTROPHILS # (AUTO) 6.8 /CMM (1.8-8.9); NEUTROPHILS % (AUTO) 70.1 % (43.0-81.0); PLATELET COUNT (AUTO) 246 /CMM (150-450); WHITE BLOOD COUNT (AUTO) 9.8 K/uL (4.3-11.0)
[2019-01-30 11:48] LABS: CALCIUM, SERUM 8.9 mg/dL (8.5-10.1); CREATININE 1.9 mg/dL (0.6-1.3); POTASSIUM 4.7 mmol/L (3.5-5.1)
[2019-01-30 13:05] LABS: HEMATOCRIT 17 % (39-51); HEMOGLOBIN 5.9 g/dL (13.5-17.5)
[2019-01-30 13:42] LABS: LYMPHOCYTES % (MANUAL) 20 % (16-48); MONOCYTES % (MANUAL) 2 % (0-11.0); NEUTROPHILS % (MANUAL) 78 (42-76)
== END 2019-01-30 23:59 | disposition home or self-care (01) ==
LOC: RAD 10:03
PROVIDERS: ATTEND Podiatrist Foot & Ankle Surgery
DX: Z01.818 Encounter for other preprocedural examination (principal); D57.219 Sickle-cell/Hb-C disease with crisis, unspecified; I51.7 Cardiomegaly; M47.814 Spondylosis without myelopathy or radiculopathy, thoracic region; M25.78 Osteophyte, vertebrae; Z98.1 Arthrodesis status
CPT/HCPCS: 36415; 71046; 80048-TC; 85025-TC; 85730-TC

== ENCOUNTER 2019-02-07 10:32 | Inpatient (IN) | payer MEDICARE, MEDICAID ==
[2019-02-07] VITALS (9 sets, daily range): BP systolic 138–157; BP diastolic 65–85
[~2019-02-07] VITALS: Ht 190.5 cm; Wt 108.9 kg
--- NOTE | 2019-02-07 11:00 | NUR ---
ASSUMED CARE FOR PT; BIBFAMILY SENT BY PMD FOR ABNORMAL LABS; PT AAOX4, -SOB, NAD NOTED, PT ON MONITOR, VSS
[2019-02-07] MEDS ORDERED: METH10TA2 PO (11:06)
[2019-02-07] MEDS ORDERED: BUPR150T10 PO (11:06)
[2019-02-07] MEDS ORDERED: RANI150T8 PO (11:06)
[2019-02-07 11:13] LABS: WHITE BLOOD COUNT (AUTO) 11.2 K/uL (4.3-11.0)
[2019-02-07 11:16] LABS: BASOPHILS # (AUTO) 0.2 /CMM (0.0-0.2); BASOPHILS % (AUTO) 1.8 % (0.0-2.0); LYMPHOCYTES # (AUTO) 1.3 /CMM (0.8-4.8); LYMPHOCYTES % (AUTO) 11.9 % (20.0-44.0); MEAN CORPUSCULAR HGB CONC 35 g/dl (31.0-36.0); MEAN CORPUSCULAR VOLUME 84 fL (80-96); MONOCYTES # (AUTO) 0.8 /CMM (0.1-1.30); MONOCYTES % (AUTO) 6.9 % (2.0-12.0); NEUTROPHILS # (AUTO) 8.1 /CMM (1.8-8.9); NEUTROPHILS % (AUTO) 72.4 % (43.0-81.0); PLATELET COUNT (AUTO) 287 /CMM (150-450)
[2019-02-07 11:19] LABS: RED BLOOD CELL COUNT(AUTO) 1.93 MIL/uL (4.5-6.0)
[2019-02-07 11:20] LABS: HEMATOCRIT 16 % (39-51); HEMOGLOBIN 5.6 g/dL (13.5-17.5)
[2019-02-07 11:23] LABS: CALCIUM, SERUM 8.5 mg/dL (8.5-10.1); CREATININE 2.2 mg/dL (0.6-1.3); POTASSIUM 4.8 mmol/L (3.5-5.1)
[2019-02-07 11:28] LABS: ALBUMIN 3.4 g/dL (3.4-5.0); TOTAL PROTEIN, SERUM 7.4 g/dL (6.4-8.2)
--- NOTE | 2019-02-07 11:30 | NUR ---
BLOOD TRANSFUSION CONSENTS SIGNED
--- NOTE | 2019-02-07 11:42 | NUR ---
CALLED NURSING SUP REQUESTED TELE BED
[2019-02-07] MEDS ORDERED: ZOLPIDEM TARTRATE 5 MG TABLET PO PRN (12:30)
[2019-02-07] MEDS ORDERED: ACETAMINOPHEN 325 MG TABLET PO PRN (12:30)
[2019-02-07] MEDS ORDERED: MAG HYDROX/AL HYDROX/SIMETH 30 ML UDC PO PRN (12:30)
[2019-02-07] MEDS ORDERED: HYDROCODONE/APAP 5/325MG 1 EACH TABLET PO PRN (12:30)
[2019-02-07] MEDS ORDERED: Z GUARD REMEDY 2 OZ OINT TP PRN (12:30)
[2019-02-07] MEDS ORDERED: MAGNESIUM HYDROXIDE 30 ML UDC PO PRN (12:30)
[2019-02-07] MEDS ORDERED: ONDANSETRON HCL/PF 4 MG/2 ML VIAL IVP PRN (12:30)
--- NOTE | 2019-02-07 12:45 | NUR ---
REPORT GIVEN TO VIJAY FUNES FOR SINDY; PT TRANSPORTED TO 3RD FLOOR VIA [facility]
--- NOTE | 2019-02-07 13:42 | NUR ---
STATOR PLATE WASHER ADMITTING NOTES PATIENT ADMITTED TO UNIT AT 1245 VIA [facility] ACCOMPANIED BY 2 E.R STAFF. PY ABLE TO TRANSFER SELF FROM [facility] TO HIS BED. A/O X4. ABLE TO MAKE NEEDS KNOWN, NO C/O PAIN OR DISCOMFORTS AT THIS TIME. PT ORIENTED TO STAFF, UNIT AND ROOM. V/S TAKEN AND RECORDED. ON ROOM AIR, BREATHING EVEN AND UNLABORED. ASSESSMENT DONE. PT REFUSED TO ASSESS RLE AND STATED THAT HE WANTS THE DOCTOR TO SEE IT FIRST IN THE MORNING BUT IT'S NOTED WITH RIGHT EXTERNAL FIXATOR WITH DRESSING INTACT AND NO LEAKAGE OR SOILING TO NOTED. LUNGS CLEAR BILATERALLY ON AUSCULTATION. ABDOMEN SOFT AND NON TENDER WITH + BOWEL SOUNDS ON FOUR QUADRANTS. PT WITH IV ACCESS ON RAC G#18 INTACT AND PATENT. 2 BAGS OF PRBC WILL BE INFUSED TODAY PER MD ORDER. PT PLACED ON TELEMONITORING WITH CURRENT READING OF SINUS RHYTHM AND HR ON THE 90'S, NO C/O CARDIAC DISTRESS VOICED. SAFETY MEASURES INITIATED. BED PLACED IN LOW LOCKED POSITION WITH SIDE-RAILS UP X2. CALL LIGHT PLACED WITHIN EASY REACH OF PT. WILL CONTINUE TO MONITOR PT ACCORDINGLY.
[2019-02-07 14:38] LABS: HEMOGLOBIN 5.6 g/dL (13.5-17.5)
--- NOTE | 2019-02-07 15:07 | NUR ---
RN NOTES/PAIN MANAGEMENT PATIENT C/O ACHING, THROBBING AND SHARP PAIN ON RIGHT LOWER LEG WITH SCALE OF 7/10. PRN NORCO 5/325NG PO GIVEN AT 1504. WILL CONTINUE TO MONITOR AND REASSESS PT.
--- NOTE | 2019-02-07 15:47 | NUR ---
RN NOTES PATIENT STARTED 1ST BAG OF 2 PRBC BLOOD TRANSFUSION VIA IV ACCESS ON RAC. PRE V/S CHECKED: BP 1153/65, R 21, P 920AND T 98.3F. WILL MONITOR FOR ANY ADVERSE REACTIONS.
[2019-02-07] MEDS ORDERED: FAMOTIDINE (20 MG) 20 MG TABLET PO PRN (17:00)
[2019-02-07] MEDS: HYDROMORPHONE HCL 2 MG TABLET PO PRN ×2 (17:38→21:00)
--- NOTE | 2019-02-07 17:41 | NUR ---
RN NOTES/PAIN MANAGEMENT PATIENT C/O ACHING, THROBBING AND SHARP PAIN ON RIGHT LOWER LEG AND LOWER BACK WITH SCALE OF 10/10. PRN DILAUDID 4MG PO GIVEN AT [phone]. WILL CONTINUE TO MONITOR AND REASSESS PT.
--- NOTE | 2019-02-07 18:51 | NUR ---
WIRE ROPE SALES REPRESENTATIVE CLOSING NOTES PT IN BED AWAKE AND WATCHING TV. A/O X4. ABLE TO MAKE NEEDS KNOWN. ON ROOM AIR, TOLERATING WELL WITH NO SOB NOTED. TELEMONITORING SHOWS SR WITH HR ON THE 80'S. IV ACCESS ON RAC INTACT AND PATENT, 1ST BAG OF 2 OF PRBC STILL INFUSING AT THIS TIME. ALL NEEDS AND CARE ATTENDED WELL. BED IN LOW LOCKED POSITION WITH SR UP X2. CALL LIGHT WITHIN REACH. WILL ENDORSE TO ORDER ENTRY TECHNICIAN NURSE FOR SINDY..
[2019-02-07] MEDS: CEFAZOLIN 1 GM in IV NS 0.9% 50 ML IV SCH (18:57)
--- NOTE | 2019-02-07 19:05 | NUR ---
RN NOTES FIRST BAG OF 2 OF PRBC BLOOD TRANSFUSION FINISHED. V/S TAKEN, STBALE AND RECORDED. NO ADVERSE REACTIONS NOTED. ENDORSED TO NIGHT NURSE HARSHAL TO INFUSE 2ND BAG OF PRBC TONIGHT.
[2019-02-07 19:09] LABS: EOSINOPHILS % (MANUAL) 9 % (0-4); LYMPHOCYTES % (MANUAL) 15 % (16-48); MONOCYTES % (MANUAL) 5 % (0-11.0); NEUTROPHILS % (MANUAL) 71 (42-76)
--- NOTE | 2019-02-07 19:10 | NUR ---
RN OPENING NOTES: RECEIVED PATIENT SITTING IN THE BED, URINATING IN THE URINAL, WITH DARK VERONICA COLORED URINE, A/O X4, NO C/O PAIN, NO DIZZINESS. INSTRUCTED NPO POST MN, VERBALIZED UNDERSTANDING. WILL HAVE 1 UNIT OF PRBC TRANSFUSION TONIGHT. ANTIBIOTIC IS RUNNING AT THIS TIME. NO COMPLAINED OF CHEST PAIN. NO ADVERSED REACTIONS FROM TRANSFUSION NOTED.
--- NOTE | 2019-02-07 21:43 | NUR ---
1 UNIT PRBC BLOOD TRANSFUSION STARTED. V/S TAKEN AND RECORDED, AFEBRILE. WILL CONTINUE TO MONITOR.
--- NOTE | 2019-02-07 23:15 | NUR ---
BLOOD TRANSFUSION STILL RUNNING, V/S WNL. AFEBRILE. NO REACTIONS NOTED. PATIENT IS RESTING COMFORTABLY IN BED. REMINDED PATIENT NPO POST MN, VERBALIZED UNDERSTANDING.
[2019-02-08] VITALS (9 sets, daily range): BP systolic 135–173; BP diastolic 69–96
[2019-02-08] MEDS: HYDROMORPHONE HCL 2 MG TABLET PO PRN ×3 (00:05→21:16)
--- NOTE | 2019-02-08 01:18 | NUR ---
RN NOTES PATIENT REQUESTED DILAUDID TAB FOR PAIN 8/10 ON RIGHT FOOT. VITALS STABLE. PATIENT EDUCATED ON RISKS AND BENEFITS OF TAKING DILAUDID. PATIENT UNDERSTOOD AND AGREES. WILL CONTINUE TO MONITOR.
--- NOTE | 2019-02-08 01:23 | NUR ---
BLOOD TRANSFUSION IS FINISHED. NO REACTIONS NOTED. V/S WNL. AFEBRILE. PATIENT IS RESTING COMFORTABLY IN BED.
[2019-02-08] MEDS: CEFAZOLIN 1 GM in IV NS 0.9% 50 ML IV SCH ×3 (02:18→17:02)
--- NOTE | 2019-02-08 02:40 | NUR ---
CALLED CHRIS FROM LAB AT 0230 TO INFORM THAT TRANSFUSION IS FINISHED FOR THE H/H LAB DRAW.
--- NOTE | 2019-02-08 02:43 | NUR ---
PATIENT IS RESTING COMFORTABLY IN BED, VOIDING GOOD. NO TRANSFUSION REACTIONS NOTED. AFEBRILE. NO RESPIRATORY DISTRESS. NPO.
[2019-02-08 03:10] LABS: HEMOGLOBIN 7.5 g/dL (13.5-17.5)
--- NOTE | 2019-02-08 04:15 | NUR ---
CALLED THE PHARMACY RE: DILAUDID PILLS NEEDS TO BE REFILLED, PATIENT AWARE.
--- NOTE | 2019-02-08 05:57 | NUR ---
RN CLOSING NOTES: PATIENT IS RESTING COMFORTABLY IN BED. NPO EXCEPT MED PATIENT AWARE. V/S WNL. AFEBRILE. NO BLOOD REACTIONS NOTED. NO ACUTE EVENTS OVERNIGHT. HGB THIS MORNING POST TRANSFUSION IS 7.5. CONSENT FOR SX- REMOVAL OF EXTERNAL FIXATOR RLE HAS BEEN SIGNED BY THE PATIENT AND ATTACHED TO THE CHART. PREOP CHECKLIST FORM COMPLETED WITH RECENT V/S AND ATTACHED TO THE CHART. INSTRUCTED PATIENT TO WEAR GOWN,DONE. CALL LIGHT WITHIN REACH. BED IN LOW AND LOCKED POSITION.
[2019-02-08 06:17] LABS: BASOPHILS # (AUTO) 0.1 /CMM (0.0-0.2); BASOPHILS % (AUTO) 0.8 % (0.0-2.0); EOSINOPHILS % (AUTO) 8.5 % (0.0-6.0); HEMATOCRIT 22 % (39-51); HEMOGLOBIN 7.7 g/dL (13.5-17.5); LYMPHOCYTES # (AUTO) 2.1 /CMM (0.8-4.8); LYMPHOCYTES % (AUTO) 19.9 % (20.0-44.0); MEAN CORPUSCULAR HGB CONC 35 g/dl (31.0-36.0); MEAN CORPUSCULAR VOLUME 83 fL (80-96); MONOCYTES # (AUTO) 0.8 /CMM (0.1-1.30); MONOCYTES % (AUTO) 7.6 % (2.0-12.0); NEUTROPHILS # (AUTO) 6.6 /CMM (1.8-8.9); NEUTROPHILS % (AUTO) 63.2 % (43.0-81.0); PLATELET COUNT (AUTO) 307 /CMM (150-450); RED BLOOD CELL COUNT(AUTO) 2.67 MIL/uL (4.5-6.0); WHITE BLOOD COUNT (AUTO) 10.5 K/uL (4.3-11.0)
[2019-02-08 06:41] LABS: CALCIUM, SERUM 8.5 mg/dL (8.5-10.1); MAGNESIUM 2.1 mg/dL (1.8-2.4); PHOSPHORUS 4.1 mg/dL (2.5-4.9); POTASSIUM 4.4 mmol/L (3.5-5.1)
[2019-02-08 06:43] LABS: THYROID STIMULATING HORMONE 6.794 uIU/mL (0.358-3.74)
--- NOTE | 2019-02-08 07:40 | NUR ---
LABOR UTILIZATION SUPERINTENDENT OPENING NOTES RECEIVED PT SITTING UPRIGHT IN BED. IT AWAKE ALERT, X4. RESPIRATIONS ARE EVEN AND UNLABORED, NOT IN ANY ACUTE DISTRESS NOTED. PT DENIES ANY PAIN AT THIS TIME, NO C/O SOB, N/V. IV SITE TO RAC INTACT, NO INFILTRATION NOTED. DRESSING KEPT CLEAN AND DRY. INSTRUCTED PT TO USE CALL LIGHT WHEN ASSISTANCE IS NEEDED, CALL LIGHT IS LEFT WITHIN REACH. WILL MONITOR THROUGHOUT SHIFT FOR CONTINUITY OF CARE.
--- NOTE | 2019-02-08 08:10 | NUR ---
HAZARDOUS WASTE MANAGEMENT SPECIALIST NOTES-- PT P/U BY OR FOR PROCEDURE. CONSENTS AND CHECKLIST DONE.
--- NOTE | 2019-02-08 10:00 | NUR ---
MS RN NOTES-- PT CAME BACK FROM OR IN STABLE CONDITION VIA GURNEY. PT REMAINS A/O X4, AFEBRILE. RESPIRATIONS ARE EVEN AND UNLABORED, NOT IN ANY ACUTE DISTRESS NOTED. PER DR. ESCAMILLA, KEEP DRESSING CLEAN, DRY AND INTACT, CAM BOOT TO RIGHT LOWER EXXTREMITY, NONWEIGHT BEARING PATIENT MAY TRANSFER FROM BED TO CHAIR TO BATHROOM, BEDSIDE COMMODE, RESUME DIET/MEDICATION. ORDERS NOTED AND CARRIED OUT.
--- NOTE | 2019-02-08 10:26 | NUR ---
MS RN NOTES-- CALLED PHARMACY, SPOKE W/ DAPHNE RE: SHA SCHEDULED AT 10AM. PER DAPHNE, THEY WILL LOOK INTO IT.
[2019-02-08] MEDS: METHADONE HCL 10 MG TABLET PO SCH (10:33)
[2019-02-08] MEDS: buPROPion SR 150 MG TABLET.ER PO SCH ×3 (10:33→17:02)
[2019-02-08 13:20] LABS: HEMOGLOBIN 7.5 g/dL (13.5-17.5)
--- NOTE | 2019-02-08 14:41 | NUR ---
MS RN NOTES-- PT ABLE TO MAKE NEEDS KNOWN. NEEDS MET AND RENDERED. PT DOES NOT APPEAR TO BE IN ANY DISTRESS. WILL CONTINUE TO MONITOR.
[2019-02-08 18:31] LABS: HEMOGLOBIN 7.8 g/dL (13.5-17.5)
--- NOTE | 2019-02-08 19:45 | NUR ---
RN OPENING NOTES RECEIVED PATIENT AWAKE, SITTING UPRIGHT IN BED. PATIENT IS A/O X 4. NO SIGNS OF RESPIRATORY DISTRESS. NO SIGNS OF SOB. PAIN LEVEL IS AT 4/10 ON RIGHT FOOT AT THIS TIME. IV SITE TO RAC INTACT. SAFETY PRECAUTIONS IMPLEMENTED; CALL LIGHT WITHIN REACH, BED LOW, BED LOCKED, SIDE RAILS UP X2. WILL CONTINUE TO MONITOR PATIENT.
--- NOTE | 2019-02-08 19:53 | NUR ---
MS RN CLOSING NOTES ALL DUE MEDS GIVEN, NEEDS MET AND RENDERED. PT IS A/O X4, AFEBRILE. RESPIRATIONS ARE EVEN AND UNLABORED, NOT IN ANY ACUTE DISTRESS NOTED. DENIES ANY CHEST PAIN, SOB, N/V. IV SITE TO RAC INTACT, NO INFILTRATION NOTED. DRESSING KEPT CLEAN AND DRY. SAFETY MEASURES ARE IN PLACE. BOOT IS PLACED TO RIGHT FOOT. ENDORSED TO NEXT SHIFT FOR CONTINUITY OF CARE.
--- NOTE | 2019-02-08 21:15 | NUR ---
RN NOTES PATIENT REQUESTED DILAUDID FOR PAIN 8/10 ON R FOOT. VITALS STABLE. PATIENT WAS GIVEN THE BENEFITS AND RISKS OF TAKING DILAUDID. WILL CONTINUE TO MONITOR PATIENT.
[2019-02-09] MEDS: CEFAZOLIN 1 GM in IV NS 0.9% 50 ML IV SCH ×3 (01:13→17:02)
[2019-02-09 01:17] VITALS: BP 130/75
[2019-02-09] MEDS: HYDROMORPHONE HCL 2 MG TABLET PO PRN ×5 (01:18→21:18)
--- NOTE | 2019-02-09 01:18 | NUR ---
RN NOTES PLEASE DISCARD NOTE FOR 02/08 017. PATIENT REQUESTED DILAUDID TAB FOR PAIN 8/10 ON RIGHT FOOT. VITALS STABLE. PATIENT EDUCATED ON RISKS AND BENEFITS OF TAKING DILAUDID. PATIENT UNDERSTOOD AND AGREES. WILL CONTINUE TO MONITOR.
--- NOTE | 2019-02-09 06:25 | NUR ---
RN NOTES PATIENT REQUESTED DILAUDID TAB FOR PAIN 8/10 ON RIGHT FOOT. VITALS: 143/77, PULSE 75, RESP 20, TEMP 97.7, O2 SAT 96%. PATIENT IS AWARE OF THE RISKS OF TAKING THIS MEDICATION.
[2019-02-09 06:33] VITALS: BP 143/77
--- NOTE | 2019-02-09 06:40 | NUR ---
RN CLOSING NOTES PATIENT IS CURRENTLY AWAKE RESTING IN BED. PATIENT IS A/O X 4, AFEBRILE. NO SIGNS OF RESPIRATORY DISTRESS. DENIES SOB. IV SITE RAC INTACT AND PATENT, NO INFILTRATION. DRESSING IS KEPT CLEAN AND DRY. ALL MEDICATIONS GIVEN. ALL NEEDS ATTENDED TO. SAFETY PRECAUTIONS IMPLEMENTED; CALL LIGHT WITHIN REACH, BED LOW, BED LOCKED, SIDE RAILS UP X2. BOOT IS PLACED TO RIGHT FOOT. WILL ENDORSE TO AM RN FOR CONTINUITY OF CARE.
[2019-02-09 07:24] LABS: CALCIUM, SERUM 8.1 mg/dL (8.5-10.1); MAGNESIUM 2.1 mg/dL (1.8-2.4); PHOSPHORUS 4.1 mg/dL (2.5-4.9); POTASSIUM 4.5 mmol/L (3.5-5.1)
--- NOTE | 2019-02-09 07:52 | NUR ---
M/S RN OPENING NOTES RECEIVED PT ON BED, A/O X 4 AND ABLE TO MAKE NEEDS KNOWN. NO SOB NOTED. PAIN AT 08/09 AFTER RECEIVING DILAUDID ORDERED. SKIN WARM TO TOUCH AND DRY, BOOT PRESENT AT RIGHT ANKLE D/T EXTERNAL FIXATION WHICH WAS REMOVED 02/08 PER ENDORSEMENT. ABD SOFT AND NON DISTENDED, URINAL PRESENT ON BEDSIDE. IV SITE AT RIGHT AC WITH NO S/SX OF INFILTRATION. ALL CONCERNS ADDRESSED. PLACED CALL LIGHT WITHIN REACH FOR SAFETY. WILL CONTINUE TO MONITOR CARE.
[2019-02-09 08:00] VITALS: BP 140/71
[2019-02-09] MEDS: buPROPion SR 150 MG TABLET.ER PO SCH ×3 (08:33→17:02)
[2019-02-09] MEDS: METHADONE HCL 10 MG TABLET PO SCH (08:33)
[2019-02-09 16:00] VITALS: BP 141/71
--- NOTE | 2019-02-09 18:27 | NUR ---
M/S RN CLOSING NOTES PATIENT A/O X 4 AND ABLE TO MAKE NEEDS KNOWN. RESPIRATION EVEN AND NON LABORED WITH NO ASSESSED DISTRESS. C/O PAIN AT RIGHT LEG WITH PAIN SCALE 8/10, DILAUDID GIVEN ORDERED GOING DOWN TO 5-6/10 PATIENT STATED. ABD SOFT AND NON DISTENDED WITH ACTIVE BOWEL SOUNDS. SKIN WARM TO TOUCH AND DRY. RIGHT AC IV SITE PATENT IN FLUSHING. ALL CONCERNS ADDRESSED. CALL LIGHT WITHIN REACH. ENDORSED PATIENT CARE TO NEXT SHIFT
--- NOTE | 2019-02-09 19:44 | NUR ---
RN OPENING NOTES RECEIVED PATIENT IN BED, AWAKE. A/O X 4. ABLE TO MAKE NEEDS KNOWN. NO SIGNS OF RESPIRATORY DISTRESS. NO SOB NOTED. PATIENT STATES THE PAIN IS AT A GOOD LEVEL AT 6/10. BOOT PRESENT AT RIGHT ANKLE, INTACT. IV SITE RIGHT AC WITH NO S/S OF INFILTRATION. SAFETY PRECAUTIONS IMPLEMENTED; CALL LIGHT WITHIN REACH, BED LOW, BED LOCKED, SIDE RAILS UP X2. WILL CONTINUE TO MONITOR PATIENT.
[2019-02-09 20:00] VITALS: BP_SYST 140; BP_DIAS 78; BP_DIAS 82
[2019-02-09 21:15] VITALS: BP 142/76
[2019-02-10 00:21] VITALS: BP 156/76
[2019-02-10] MEDS: HYDROMORPHONE HCL 2 MG TABLET PO PRN ×3 (00:24→10:21)
--- NOTE | 2019-02-10 00:25 | NUR ---
RN NOTES PATIENT REQUESTED DILAUDID TAB 4 MG FOR PAIN 8/10 ON RIGHT FOOT. PATIENT UNDERSTANDS THE RISKS OF TAKING THIS MEDICATION. V/S STABLE. WILL CONTINUE TO MONITOR PATIENT.
[2019-02-10] MEDS: CEFAZOLIN 1 GM in IV NS 0.9% 50 ML IV SCH ×2 (02:20→10:14)
--- NOTE | 2019-02-10 06:43 | NUR ---
RN CLOSING NOTES PATIENT IS A/O X 4. ABLE TO MAKE NEEDS KNOWN. RESPIRATIONS EVEN AND NON LABORED, NO ACUTE DISTRESS NOTED. PATIENT'S PAIN LEVEL WAS MANAGED, PATIENT ASKED FOR PAIN MEDS PRN. PATIENT AFEBRILE. IV SITE RIGHT AC PATENT AND INTACT, FLUSHING WELL, NO INFILTRATION OR REDNESS NOTED. ALL NEEDS ATTENDED TO. SAFETY PRECAUTIONS IMPLEMENTED; CALL LIGHT WITHIN REACH, BED LOW, BED LOCKED, SIDE RAILS UP X2. WILL ENDORSE CARE TO AM RN FOR CONTINUITY OF CARE.
[2019-02-10 06:59] LABS: BASOPHILS # (AUTO) 0.1 /CMM (0.0-0.2); BASOPHILS % (AUTO) 0.7 % (0.0-2.0); EOSINOPHILS % (AUTO) 10.6 % (0.0-6.0); HEMOGLOBIN 7.2 g/dL (13.5-17.5); LYMPHOCYTES # (AUTO) 1.2 /CMM (0.8-4.8); LYMPHOCYTES % (AUTO) 15.5 % (20.0-44.0); MEAN CORPUSCULAR HGB CONC 35 g/dl (31.0-36.0); MEAN CORPUSCULAR VOLUME 85 fL (80-96); MONOCYTES # (AUTO) 0.8 /CMM (0.1-1.30); MONOCYTES % (AUTO) 9.9 % (2.0-12.0); NEUTROPHILS # (AUTO) 5.1 /CMM (1.8-8.9); NEUTROPHILS % (AUTO) 63.3 % (43.0-81.0); PLATELET COUNT (AUTO) 286 /CMM (150-450)
[2019-02-10 07:03] LABS: HEMATOCRIT 20 % (39-51)
[2019-02-10 07:05] LABS: CALCIUM, SERUM 8.5 mg/dL (8.5-10.1); CREATININE 1.9 mg/dL (0.6-1.3); MAGNESIUM 2.2 mg/dL (1.8-2.4); PHOSPHORUS 4.2 mg/dL (2.5-4.9); POTASSIUM 4.8 mmol/L (3.5-5.1)
--- NOTE | 2019-02-10 07:09 | NUR ---
RN NOTES RECEIVED CRITICAL LAB RESULT FOR HCT. RESULT:20. AM RN NOTIFIED.
--- NOTE | 2019-02-10 07:15 | NUR ---
MS/RN NOTE THE PATIENT IS RECEIVED IN BED. AWAKE, ALERT AND ORIENTED X4. IN ROOM AIR AND DENIES SOB. RESPIRATION REGULAR AND UNLABORED. DENIES PAIN AT THIS TIMES. RIGHT LOWER LEG WITH BOOT AND NO S/S POOR CIRCULATION NOTED. RAC G 18 PATENT AND SALINE LOCKED. BED LOW AND LOCKED. SIDE RAILS UP X2. CALL LIGHT WITHIN REACH. WILL CONTINUE TO MONITOR.
[2019-02-10 08:00] VITALS: BP 141/85
[2019-02-10 08:01] LABS: BAND % (MANUAL) 8 % (0.0-5.0); EOSINOPHILS % (MANUAL) 9 % (0-4); LYMPHOCYTES % (MANUAL) 20 % (16-48); MONOCYTES % (MANUAL) 11 % (0-11.0); NEUTROPHILS % (MANUAL) 52 (42-76)
[2019-02-10] MEDS: METHADONE HCL 10 MG TABLET PO SCH (08:02)
[2019-02-10] MEDS: buPROPion SR 150 MG TABLET.ER PO SCH (08:02)
--- NOTE | 2019-02-10 11:24 | NUR ---
MS/RN NOTE THE PATIENT ALERT AND ORIENTED X4. IN ROOM AIR AND SATURATION IS AT 98%. RESPIRATION REGULAR AND UNLABORED. DENIES PAIN. THE PATIENT IN NO APPARENT DISTRESS. DISCHARGE EDUCATION PROVIDED TO THE PATIENT AND HE VERBALIZED UNDERSTANDING. PRESCRIPTION IS GIVEN TO THE PATIENT AND COPY IS KEPT IN THE CHART. THE PATIENT LEAVING THE HOSPITAL IN STABLE CONDITION. THE PATIENT IS GETTING PICKED UP BY MOTHER VIA PRIVATE CAR. Addendum: 02/10/19 at 1133 by JANESSA GARCIA RN MS/RN NOTE PER PATIENT RIGHT FOOT DRESSING SHOULD NOT BE OPENED BY NURSES. REFUSED PICTURE. THE PATIENT LEFT HOSPITAL WEARING THE CALM BOOT ON RIGHT LOWER EXTREMITY.
== END 2019-02-10 11:30 | disposition home or self-care (01) | DRG 811 ==
LOC: ER 10:35 → TELE 12:03 → MED 02-08 08:52
PROVIDERS: ADMIT Internal Medicine; ATTEND Internal Medicine
PROC: 0SPFX5Z Removal of External Fixation Device from Right Ankle Joint, External Approach (ICD-10-PCS; principal; 2019-02-07)
PROC: 30233N1 Transfusion of Nonautologous Red Blood Cells into Peripheral Vein, Percutaneous Approach (ICD-10-PCS; 2019-02-07)
DX: D57.00 Hb-SS disease with crisis, unspecified (principal); N17.0 Acute kidney failure with tubular necrosis; F33.9 Major depressive disorder, recurrent, unspecified; Z90.49 Acquired absence of other specified parts of digestive tract; G89.4 Chronic pain syndrome; K21.9 Gastro-esophageal reflux disease without esophagitis; N18.9 Chronic kidney disease, unspecified; Q66.89 Other specified congenital deformities of feet; Z98.1 Arthrodesis status; D63.8 Anemia in other chronic diseases classified elsewhere; Z79.891 Long term (current) use of opiate analgesic; Z48.89 Encounter for other specified surgical aftercare
CPT/HCPCS: 36415; 71045-TC; 73600-TC; 80048-TC; 80053-TC; 80061-TC; 83540-TC; 83605-TC; 83735-TC; 84100-TC; 84443-TC; 85025-TC; 85027-TC; 85045-TC; 85730-TC; 86850-TC; 86900-TC; 86921-TC; 87040-TC; 87081-TC; A4216; A6209; G0378; J0690; J1100; J1885; J2001; J2704; J7040; P9016-BL

== ENCOUNTER 2019-02-15 09:40 | Outpatient (CLI) | payer MEDICARE, MEDICAID ==
[~2019-02-15 09:40] MED LIST changes: +BUPR150T10 PO; -FLUORESCEIN SODIUM OPHTH 1 EA STRIP ONE; +METH10TA2 PO; +RANI150T8 PO
== END 2019-02-15 23:59 | disposition home health service (06) ==
LOC: WOU 09:40
PROVIDERS: ATTEND Podiatrist Foot & Ankle Surgery
DX: Z47.89 Encounter for other orthopedic aftercare (principal); M21.542 Acquired clubfoot, left foot; D57.1 Sickle-cell disease without crisis; L84 Corns and callosities; Z98.1 Arthrodesis status
CPT/HCPCS: A6402; G0463

== ENCOUNTER 2019-04-12 09:10 | Outpatient (CLI) | payer MEDICARE, MEDICAID | END 2019-04-12 23:59 | disposition home or self-care (01) | LOC: WOU 09:10 | PROVIDERS: ATTEND Podiatrist Foot & Ankle Surgery | DX: M21.542 Acquired clubfoot, left foot (principal); I87.8 Other specified disorders of veins; R60.0 Localized edema; L84 Corns and callosities; M79.672 Pain in left foot; D57.1 Sickle-cell disease without crisis; Z98.1 Arthrodesis status | CPT/HCPCS: G0463 ==

== ENCOUNTER 2019-08-09 09:00 | Outpatient (CLI) | payer MEDICARE, MEDICAID | END 2019-08-09 23:59 | disposition home or self-care (01) | LOC: WOU 09:00 | PROVIDERS: ATTEND Podiatrist Foot & Ankle Surgery | DX: M96.0 Pseudarthrosis after fusion or arthrodesis (principal); D57.1 Sickle-cell disease without crisis; M21.541 Acquired clubfoot, right foot; M21.542 Acquired clubfoot, left foot; L84 Corns and callosities; L60.3 Nail dystrophy; M21.172 Varus deformity, not elsewhere classified, left ankle; J18.9 Pneumonia, unspecified organism | CPT/HCPCS: G0463 ==

== ENCOUNTER 2019-09-06 09:16 | Outpatient (CLI) | payer MEDICARE, MEDICAID | END 2019-09-06 23:59 | disposition home or self-care (01) | LOC: RAD 09:16 | PROVIDERS: ATTEND Podiatrist Foot & Ankle Surgery | DX: M84.672A Pathological fracture in other disease, left ankle, initial encounter for fracture (principal); M21.961 Unspecified acquired deformity of right lower leg; M21.962 Unspecified acquired deformity of left lower leg; D57.1 Sickle-cell disease without crisis; M79.89 Other specified soft tissue disorders; M77.32 Calcaneal spur, left foot; M77.31 Calcaneal spur, right foot; M21.42 Flat foot [pes planus] (acquired), left foot; Z98.890 Other specified postprocedural states | CPT/HCPCS: 73600-TC; 73630-TC; 73650-TC ==

== ENCOUNTER 2019-09-13 09:00 | Outpatient (CLI) | payer MEDICARE, MEDICAID | END 2019-09-13 23:59 | disposition home or self-care (01) | LOC: WOU 09:00 | PROVIDERS: ATTEND Podiatrist Foot & Ankle Surgery | DX: M96.0 Pseudarthrosis after fusion or arthrodesis (principal); D57.1 Sickle-cell disease without crisis; M21.541 Acquired clubfoot, right foot; M21.542 Acquired clubfoot, left foot; Z87.01 Personal history of pneumonia (recurrent) | CPT/HCPCS: G0463 ==